=== PATIENT | female | born 1960 | race Caucasian/White ===

== ENCOUNTER → 2018-10-07 | Day surgery (SDC) | payer OTHER ==
[~2018-10-07] MED LIST: HYDROmorphone 2 MG/ML VIAL IV PRN; IV RINGERS,LACTATED 1000ML 1,000 ML IV SCH; LEVO75TA5 PO; LIDOCAINE 1% PF 2 ML VIAL. ID PRN; LIDOCAINE 2% PF 5 ML VIAL. ONE; MORPHINE SULFATE 2 MG/ML VIAL. IV PRN; ONDANSETRON PF 4 MG/2 ML VIAL. IV PRN; PROCHLORPERAZINE 10 MG/2 ML VIAL. IV PRN; PROPOFOL 40 ML IV ONE; SIMV10TA3 PO; fentaNYL PF VIAL 100 MCG/2 ML VIAL IV PRN
[2018-10-07 11:17] VITALS: BP 116/70
--- NOTE | 2018-10-08 15:06 | PATHOLOGY ---
[facility] Accession Number: [id number] . 01 Material submitted: . PART A: colon - SIMGOID POLYP. Modifiers: sigmoid PART B: colon - TRANSVERSE COLON POLYP. Modifiers: transverse PART C: rectum - RECTAL POLYP . 01 Clinical history: . Pre-OP DX: Screening Post-OP DX: Polyps . 02 Diagnosis: A. Colon biopsies, sigmoid polyp: - Hyperplastic polyp. . B. Colon biopsies, transverse colon polyp: - Sessile serrated polyp/adenoma. . C. Colorectal biopsies, rectal polyps: - Consistent with hyperplastic polyps/prominent mucosal folds. . (JPM:mml; 10/08/2018) [facility]/10/08/2018 . 02 Comment: There is no high grade dysplasia or evidence of malignancy. . (JPM:mml; 10/08/2018) . 02 Electronically signed: . Jose M Razo MD, Pathologist NPI- [id number] . 01 Gross description: . A. Received in formalin labeled "Cornelius, Shanika, sigmoid polyp," are 4 segments of brand soft tissue measuring 0.8 x 0.7 x 0.1 cm in aggregate dimensions and ranging from 0.2 to 0.3 cm in maximum dimension. The specimen is submitted entirely in cassette A1. . B. Received in formalin labeled "Cornelius, Shanika, transverse colon polyp," are 7 segments of brand soft tissue measuring 1.3 x 0.9 x 0.2 cm in aggregate dimensions and ranging from 0.1 to 0.5 cm in maximum dimension. The specimen is submitted entirely in cassette B1. . C. Received in formalin labeled "Cornelius, Shanika, rectal polyp," are 2 segments of brand soft tissue measuring 0.5 x 0.2 x 0.2 cm in aggregate dimensions and ranging from 0.2 to 0.3 cm in maximum dimension. The specimen is submitted entirely in cassette C1. (TSD; 10/07/2018) TOB/TOB . 02 Pathologist provided ICD-10: K63.5, D12.3, K62.1 . 02 CPT . 440000, 111209, 238944 Specimen Comment: A courtesy copy of this report has been sent to Specimen Comment: [phone], . Specimen Comment: Report sent to / DR SHELLEY Performed at: 01 [facility] [address], [place] [id number] MD Duarte Maldonado MD Phone: [phone] Performed at: 02 [facility] [address] [place], [place] [id number] MD Jose M Razo MD Phone: [phone]
== END | disposition home or self-care (01) ==
LOC: ENDOS 09:34
PROVIDERS: ATTEND Internal Medicine Gastroenterology
DX: Z12.11 Encounter for screening for malignant neoplasm of colon (principal); D12.3 Benign neoplasm of transverse colon; K63.5 Polyp of colon; K64.0 First degree hemorrhoids; K64.4 Residual hemorrhoidal skin tags; E78.5 Hyperlipidemia, unspecified; Z79.899 Other long term (current) drug therapy; Z98.890 Other specified postprocedural states; Z98.51 Tubal ligation status
CPT/HCPCS: 45380; 88305; J2001; J2704

== ENCOUNTER 2021-03-01 09:22 | Day surgery (SDC) | payer OTHER ==
[~2021-03-01] VITALS: Ht 161.3 cm; Wt 49.5 kg
[~2021-03-01 09:22] MED LIST changes: +ACETAMINOPHEN 500 MG TABLET PO PRN; +ASCO500C PO; +BUPIVACAINE-EPI 0.25%-1:200000 MPF 30 ML VIAL. ONE; +CETI10TA74 PO; +CHOL-5 PO; +CINN500C2 PO; +ESCITALOPRAM OX10 MG PO; -HYDROmorphone 2 MG/ML VIAL IV PRN; +HYDROmorphone 2 MG/ML VIAL IVP PRN; -LIDOCAINE 1% PF 2 ML VIAL. ID PRN; -LIDOCAINE 2% PF 5 ML VIAL. ONE; +MORPHINE SULFATE 2 MG/ML INJ. IVP PRN; -MORPHINE SULFATE 2 MG/ML VIAL. IV PRN; +MULT-245 PO; +NEOMY/BACITR/POLYMYXIN OINT PACKET. TP ONE; +OLOP2.5D12 OP; -ONDANSETRON PF 4 MG/2 ML VIAL. IV PRN; -PROCHLORPERAZINE 10 MG/2 ML VIAL. IV PRN; +PROCHLORPERAZINE 10 MG/2 ML VIAL. IVP PRN; -PROPOFOL 40 ML IV ONE; +SIMV10TA15 PO; -SIMV10TA3 PO; +SIMV40TA18 PO; +ZOLP10TA PO; +ceFAZolin SODIUM IV Push 1 GM VIAL. IVP PRN; -fentaNYL PF VIAL 100 MCG/2 ML VIAL IV PRN; +fentaNYL PF VIAL 100 MCG/2 ML VIAL IVP PRN
[2021-03-01 09:49] VITALS: BP 121/70
[2021-03-01] MEDS ORDERED: PROPOFOL 10 MG/ML (20ML) VIAL. IV ONE (12:04)
[2021-03-01] MEDS ORDERED: DEXAMETHASONE SOD PHOS 4 MG/ML VIAL ONE (12:04)
[2021-03-01] MEDS ORDERED: LIDOCAINE 2% PF 5 ML VIAL. ONE (12:04)
[2021-03-01] MEDS ORDERED: KETOROLAC 30 MG/ML VIAL. ONE (12:04)
[2021-03-01] MEDS ORDERED: fentaNYL PF VIAL 100 MCG/2 ML VIAL ONE (12:04)
[2021-03-01] MEDS ORDERED: ONDANSETRON PF 4 MG/2 ML VIAL. ONE (12:04)
[2021-03-01] MEDS ORDERED: SEVOFLURANE 31 TO 60 MINUTES. IH ONE (13:33)
[2021-03-01] MEDS ORDERED: GLYCOPYRROLATE 1 MG/5 ML VIAL. ONE (13:34)
--- NOTE | 2021-03-01 13:38 | PDOC4 ---
Operative Note Operative Note Date: March 01, 2021 at 1336 Preoperative diagnosis: Internal and external hemorrhoids Postoperative diagnosis: Same Procedure: Hemorrhoidectomy Surgeon: Francisco Specimen: Hemorrhoid Dictation: Patient is 61-year-old female with complaints of hemorrhoids with bleeding she had a negative colonoscopy for polyps or other reasons for bleeding other than her hemorrhoids. Procedure of hemorrhoidectomy was explained to the patient detail risk benefits were also discussed including bleeding infection alternatives this procedure also discussed with the patient who seemed to unde rstand and gave a verbal written consent had procedure performed. Patient was taken to the operating room placed in the supine position general anesthesia was initiated once patient was sleeping intubated she was placed in high lithotomy positioning and her peritoneum was prepped and draped in usual sterile fashion using Betadine scrub and solution. On exam of the anus there is a internal hemorrhoid at about the 7 o'clock position with an external and attachment. Area around this hemorrhoid was injected with quarter percent Marcaine with epinephrine the hemorrhoid was grasped with a Allis clamp and the hemorrhoid was excised using the harmonic scalpel along with the external and internal components. Hemorrhoid was sent for pathology the area was dressed with antibiotic ointment ABD pad and mesh pants. Patient was placed back in supine position awakened and extubated in the operating room taken to recovery in stable condition all sponge instrument needle counts listed as correct estimated blood loss less than 5 mL. DIANA YANCEY MD Mar 01, 2021 13:38
[2021-03-01] MEDS ORDERED: OXYC-325 PO (13:41)
--- NOTE | 2021-03-01 13:42 | DISCH ---
DISCHARGE INSTRUCTIONS Condition on Discharge Condition on Discharge: Stable Activity After Discharge Activity Instructions for Disc: Avoid exertion Diet after Discharge Diet after Discharge: Regular Wound Incision Care Other wound/incision instructi: May shower in 24 hours Contacting the after DC Call your doctor for: If your condition worsens Follow-Up Follow up with: Dr. Yancey in 2 weeks DIANA YANCEY MD Mar 01, 2021 13:42
[2021-03-01] MEDS ORDERED: NEOMY/BACITR/POLYMYXIN OINT PACKET. TP ONE ×2 (13:52→13:53)
[2021-03-01] MEDS ORDERED: oxyCODONE/APAP 5/325 1 TAB TABLET PO ONE (14:15)
[2021-03-01 14:30] VITALS: BP 133/71
--- NOTE | 2021-03-04 17:09 | PATHOLOGY ---
[facility] Accession Number: [id number] . 01 Material submitted: . hemorrhoids - HEMORRHOID . 01 Clinical history: . HEMORRHOID . 02 Diagnosis: Segment of skin and anorectal mucosa and underlying fibromuscular tissue, hemorrhoidectomy: - Hemorrhoids. (JPM/db; 03/04/2021) [facility] 03/04/2021 1514 Local . 02 Electronically signed: . Jose M Razo MD, Pathologist NPI- [id number] . 01 Gross description: . Received in formalin labeled "[place], Shanika, hemorrhoid" is a portion of brand-brown wrinkled mucosa and skin measuring 2.3 x 1.7 x 1.5 cm. Upon sectioning, the cut surface displays dilated blood vessels. Senior Software Developer tissue is submitted in cassette A1. ([facility] [place] 03/02/2021[place] [facility] 03/02/2021 1256 Local . 02 Pathologist provided ICD-10: K64.9 . 02 CPT . 178825 Specimen Comment: A courtesy copy of this report has been sent to [phone] Specimen Comment: Report sent to Performed at: 01 [facility] [address], [place] [id number] MD Mihai Hammer MD Phone: [phone] Performed at: 02 [facility] [address] [place], [place] [id number] MD Jose M Razo MD Phone: [phone]
== END 2021-03-01 15:10 | disposition home or self-care (01) ==
LOC: SURG 09:22
PROVIDERS: ATTEND Surgery
DX: K64.4 Residual hemorrhoidal skin tags (principal); E78.00 Pure hypercholesterolemia, unspecified; E03.9 Hypothyroidism, unspecified; Z98.51 Tubal ligation status; Z98.890 Other specified postprocedural states; Z79.899 Other long term (current) drug therapy; Z87.891 Personal history of nicotine dependence
CPT/HCPCS: 46260; A4930; A6253; J0690; J1100; J1885; J2405; J2704; J3010; J3490; 88304